=== PATIENT | female | born 2000 | race Caucasian/White ===

== ENCOUNTER 2024-07-23 07:59 | Emergency (ER) | payer OTHER, SELFPAY ==
[2024-07-23 08:02] VITALS: BP 127/56; PULSE 94; RESP 18; TEMP 37.2; O2SAT 99; BMI 24.8
--- NOTE | 2024-07-23 08:22 | ED_ITS ---
HPI - Wound/Laceration General Chief Complaint: Laceration/Wound Stated Complaint: LT thumb laceration at work Time Seen by Provider: 07/23/24 08:01 History of Present Illness HPI narrative: This 24-year-old female comes in with a laceration to the tip of her left thumb. She was using a sharp knife to cut boxes at work and accidentally cut into the tip of her thumb. She has a small laceration into the thumbnail and a flap type injury of the distal portion of the thumb. Her tetanus status is up-to-date. Related Data Home Medications ?Medication ?Instructions ?Recorded ?Confirmed norethindrone 0.5 mg-ethinyl 1 tab PO DAILY 07/23/24 07/23/24 estradiol 35 mcg tablet (Nortrel) Allergies Allergy/AdvReac Type Severity Reaction Status Date / Time No Known Drug Allergies Allergy Verified 07/23/24 08:04 Review of Systems Status of ROS: Reports: 10 or more systems reviewed and unremarkable except as noted in History and below Narrative: Constitutional: No fevers, no weight gain or loss. Eyes: No discharge. No vision changes. HENT: No congestion, no sore throat, no ear pain. Cardiovascular: No chest pain, no palpitations. Respiratory: No shortness of breath, no wheezes, no cough. Gastrointestinal: No abdominal pain, no vomiting, no diarrhea. Genitourinary: No dysuria, no hematuria. Musculoskeletal: Normal range of motion. Skin: No rashes, no pruritis. Neurological: No dizziness, weakness, sensory change, speech change. Endo/Heme/Allergies: No bruising or bleeding. No polydipsia. Pysch: no suicidality, no insomnia. She reports anxiety about this injury. All other systems reviewed and are negative. Exam Narrative: Exam Narrative: Constitutional: Well-developed, well-nourished, no acute distress. HEENT: Normocephalic, atraumatic. Neck: Normal range of motion. Nontender. Supple. Heart: Intact distal pulses. Lungs: No chest discomfort. No wheezes, rhonchi, or rales. Abdomen: Nontender. Back: Normal range of motion. Extremities: Normal range of motion. No injury. Skin: No rash. Warm. No erythema or pallor. Flap type injury of the left thumb at the distal portion. A small part of the nail was also injured. Skin edges are nicely approximated. Neurologic: No altered sensation. No weakness. Alert and oriented. Psychiatric: No suicidality. No anxiety or depression. No insomnia. Nursing notes and vitals signs are reviewed. Const: Vital Signs, click to edit/add: Vital Signs - 24 hr 07/23/24 08:02 Temperature 98.9 F Pulse Rate [Right Pulse Oximeter] 94 Respiratory Rate 18 Blood Pressure [Ri ght Upper Arm] 127/56 L Pulse Oximetry 99 Oxygen Delivery Me thod Room Air Course Vital Signs Vital signs: Initial Vital Signs Temperature 98.9 F 07/23/24 08:02 Temperature Source Temporal Artery Scan 07/23/24 08:02 Pulse Rate 94 07/23/24 08:02 Respiratory Rate 18 07/23/24 08:02 Blood Pressure 127/56 L 07/23/24 08:02 Blood Pressure Mean 79 07/23/24 08:02 Blood Pressure Position Sitting 07/23/24 08:02 Pulse Oximetry 99 07/23/24 08:02 Oxygen Delivery Method Room Air 07/23/24 08:02 Vital Signs Temperature 98.9 F 07/23/24 08:02 Pulse Rate 94 07/23/24 08:02 Respiratory Rate 18 07/23/24 08:02 Blood Pressure 127/56 L 07/23/24 08:02 Pulse Oximetry 99 07/23/24 08:02 Oxygen Delivery Method Room Air 07/23/24 08:02 Temperature 98.9 F 07/23/24 08:02 Pulse Rate 94 07/23/24 08:02 Respiratory Rate 18 07/23/24 08:02 Blood Pressure 127/56 L 07/23/24 08:02 Pulse Oximetry 99 07/23/24 08:02 Oxygen Delivery Method Room Air 07/23/24 08:02 MDM - Wound/Laceration MDM Narrative Medical decision making narrative: This patient has a laceration of the distal portion of her thumb. There is no active bleeding. I did cleanse the wound. Seeing that the skin edges are nicely approximated where it is actually difficult to see the laceration, I recommended Dermabond repair. This was applied and followed by placement of a couple Band-Aids. Instructions regarding wound care were given. Discharge Plan Discharge Clinical Impression: Laceration Patient Disposition: Home, Self-Care Condition: Unchanged Additional Instructions: Keep wound clean and dry. Use [id number] medicines as needed and directed. Okay to return to work but keep wound covered and increase activity as tolerated. Prescriptions: No Action Nortrel 0.5/35 (28) 0.5-35 mg-mcg tablet 1 tab PO DAILY Stand Alone Forms: [employer] Info Instructions
== END 2024-07-23 08:46 | disposition home or self-care (01) ==
LOC: ED 08:39
PROVIDERS: Emergency Provider Emergency Medicine Emergency Medical Services
DX: S61.012A Laceration without foreign body of left thumb without damage to nail, initial encounter (principal); W26.0XXA Contact with knife, initial encounter; Y99.0 Civilian activity done for income or pay
CPT/HCPCS: 12001; 99282; 99284